=== PATIENT | male | born 1945 | race Caucasian/White ===

== ENCOUNTER 2017-03-27 18:10 | Emergency (ER) | payer OTHER, MEDICARE ==
[~2017-03-27] VITALS: Ht 177.8 cm; Wt 79.1 kg
[~2017-03-27 18:10] MED LIST: BACTRIM,SEPT1 TABLET PO; DILTIAZEM 24HR240 MG PO; GABAPENTIN100 MG PO; GLYBURIDE2.5 MG PO; HYDROCHLOROTHIA25 MG PO; HYDROCODON-ACE1 EAC7 PO; HYDROCODON-ACE1 EAC9 PO; K-DUR20 MEQ PO; LEFLUNOMIDE20 MG PO; LORAZEPAM1 MG PO; METFORMIN HCL850 MG PO; OMEPRAZOLE20 MG PO; PREDNISONE5 MG PO; TAMSULOSIN HCL0.4 MG PO; TIZANIDINE HCL4 M1 PO; TIZANIDINE HCL4 MG PO; WARFARIN SODIUM5 MG PO
[2017-03-27 21:03] LABS: HEMATOCRIT 37.2 % (38.0-50.0); MCH 31.2 PG (29.0-34.0); MCHC 32.8 G/DL (30.0-36.0); MCV 95.1 FL (86-99); MEAN PLAT.VOLUME 10.2 uM^3 (9.0-12.4); PLATELET COUNT 249 K/uL (156-360); RBC DIS.WIDTH-CV 13.5 % (11.8-14.6); RBC DIS.WIDTH-SD 47.3 % (39-53); RED BLOOD COUNT 3.91 M/uL (4.00-5.50); WHITE BLOOD COUNT 7.6 K/uL (4.1-10.2)
[2017-03-27 21:10] LABS: INTER. NORMALIZED RATIO 1.9; PROTHROMBIN TIME 21.6 SEC (10.2-12.9)
[2017-03-27 21:16] LABS: CHLORIDE 102 mEq/L (99-109); POTASSIUM 4.3 mEq/L (3.7-5.4); SODIUM 141 mEq/L (136-147)
[2017-03-27 21:18] LABS: GLUCOSE 229 mg/dL (70-99)
[2017-03-27 21:20] LABS: ANION GAP 13 MEQ/L (2-14)
[2017-03-27 21:22] LABS: GFR ESTIMATE (CALCULATED) > 59 mL/min/
[2017-03-27 21:23] LABS: UREA NITROGEN (BUN) 30 mg/dL (9-23)
[2017-03-27] MEDS ORDERED: COLACE100 MG PO (21:40)
[2017-03-27] MEDS ORDERED: OXAYDO5 MG PO (21:40)
[2017-03-27] MEDS ORDERED: OXYCODONE HCL10 MG PO (21:46)
[2017-03-27 22:14] VITALS: BP 133/87
== END 2017-03-27 22:18 | disposition home or self-care (01) ==
LOC: EME 18:10
PROVIDERS: Physician Assistant
DX: M54.31 Sciatica, right side (principal); E11.9 Type 2 diabetes mellitus without complications; I48.91 Unspecified atrial fibrillation; Z96.649 Presence of unspecified artificial hip joint; Z87.891 Personal history of nicotine dependence
CPT/HCPCS: 72100; 80048; 85027; 85610; 93005; 99281; 99284; J3010

== ENCOUNTER 2017-03-30 16:02 | Emergency (ER) | payer OTHER, MEDICARE ==
[~2017-03-30] VITALS: Ht 177.8 cm; Wt 78.2 kg
[~2017-03-30 16:02] MED LIST changes: +COLACE100 MG PO; +OXAYDO5 MG PO; +OXYCODONE HCL10 MG PO
[2017-03-30 18:02] VITALS: BP 152/88
== END 2017-03-30 18:04 | disposition home or self-care (01) ==
LOC: EME 16:02
DX: G89.29 Other chronic pain (principal); M54.5 Low back pain; Z87.442 Personal history of urinary calculi; Z96.643 Presence of artificial hip joint, bilateral; Z87.891 Personal history of nicotine dependence
CPT/HCPCS: 99281; 99283; J3010

== ENCOUNTER 2017-12-05 21:52 | Inpatient (IN) | payer OTHER, MEDICARE ==
[~2017-12-05] VITALS: Ht 180.3 cm; Wt 85.2 kg
[~2017-12-05 21:52] MED LIST changes: +COUMADIN5 MG PO; +DILTIAZEM 24HR180 MG PO; +DOCUSATE SODIU100 MG PO; +ELIQUIS5 MG PO; -GABAPENTIN100 MG PO; +GABAPENTIN300 MG PO; +KLOR-CON M2020 MEQ PO; +LOPRESSOR25 MG PO; +METHOTREXA250 MG/10 IM; +NAFCIL 2 G2 GM/100 M IV; +OXYCODONE HCL5 MG PO; +PREDNISONE1 MG PO; +TYLENOL EXTRA500 MG PO
[2017-12-05 22:32] LABS: HEMATOCRIT 31.7 % (38.0-50.0); HEMOGLOBIN 10.6 G/DL (12.5-16.6); MCH 30.6 PG (29.0-34.0); MCHC 33.4 G/DL (30.0-36.0); MCV 91.6 FL (86-99); PLATELET COUNT 259 K/uL (156-360); RBC DIS.WIDTH-CV 16.4 % (11.8-14.6); RBC DIS.WIDTH-SD 54.4 % (39-53); RED BLOOD COUNT 3.46 M/uL (4.00-5.50); WHITE BLOOD COUNT 8.1 K/uL (4.1-10.2)
[2017-12-05 22:40] LABS: CHLORIDE 102 mEq/L (99-109); POTASSIUM 4.1 mEq/L (3.7-5.4); SODIUM 137 mEq/L (136-147)
[2017-12-05 22:41] LABS: GLUCOSE 172 mg/dL (70-99)
[2017-12-05 22:45] LABS: CREATININE 1.2 mg/dL (0.6-1.3); GFR ESTIMATE (CALCULATED) > 59 mL/min/ (58.99-99999)
[2017-12-05 22:46] LABS: UREA NITROGEN (BUN) 37 mg/dL (9-23)
[2017-12-05 22:54] LABS: TROP-I INTERPRETATION NEGATIVE; TROPONIN-I 0.05 ng/mL (0.0-0.30)
[2017-12-06 00:58] LABS: ALBUMIN 4.1 g/dL (3.2-4.8)
[2017-12-06 01:01] LABS: TOTAL PROTEIN 6.6 g/dL (6.4-8.3)
[2017-12-06 01:03] LABS: TOTAL BILIRUBIN 0.6 mg/dL (0.0-1.0)
[2017-12-06 01:04] LABS: ALKALINE PHOSPHATASE 82 IU/L (3-129)
[2017-12-06 01:07] LABS: ALT (GPT) 17 IU/L (3-49); AST (GOT) 19 IU/L (2-34); DIRECT BILIRUBIN 0.2 mg/dL (0.0-0.3)
[2017-12-06] MEDS ORDERED: PERCOCET 5/31 TABLET PO (01:41)
[2017-12-06] MEDS ORDERED: DILTIAZEM 24HR240 MG PO (01:41)
[2017-12-06] MEDS ORDERED: HYDROCHLOROTHIA25 MG PO (01:44)
[2017-12-06] MEDS ORDERED: COUMADIN5 MG PO (01:44)
[2017-12-06] MEDS ORDERED: CALCIUM 600 +1 EAC2 PO (01:44)
[2017-12-06] MEDS ORDERED: COUMADIN3 MG PO (01:44)
[2017-12-06] MEDS ORDERED: KENALOG,ARISTOC15 G2 TP (01:45)
[2017-12-06 01:49] LABS: PTT 27.8 SEC (25-37)
[2017-12-06 01:50] LABS: INTER. NORMALIZED RATIO 1.1
[2017-12-06 02:01] LABS: TROP-I INTERPRETATION NEGATIVE; TROPONIN-I 0.09 ng/mL (0.0-0.30)
[2017-12-06 03:30] VITALS: BP 157/100
[2017-12-06 05:37] LABS: INTER. NORMALIZED RATIO 1.2
[2017-12-06 05:45] LABS: TROP-I INTERPRETATION NEGATIVE; TROPONIN-I 0.14 ng/mL (0.0-0.30)
[2017-12-06 05:54] LABS: HDL CHOLESTEROL 34 MG/DL (Desirable>=40); LDL CHOLESTEROL 155 mg/dL (Desirable<100); NON-HDL CHOLESTEROL 212 mg/dL (Desirable<160); TOTAL CHOLESTEROL 246 mg/dL (Desirable<200); TRIGLYCERIDES 286 MG/DL (Normal: <150)
[2017-12-06 07:59] VITALS: BP 127/77
[2017-12-06 10:08] LABS: HEMOGLOBIN A1c (GLYCOHEMOGLOB) 7.7 % (Below 5.7)
[2017-12-06 11:32] VITALS: BP 117/71
[2017-12-06 12:59] LABS: TROP-I INTERPRETATION NEGATIVE; TROPONIN-I 0.26 ng/mL (0.0-0.30)
[2017-12-06 21:40] VITALS: BP 119/73
[2017-12-06 23:30] VITALS: BP 99/66
[2017-12-07 04:30] VITALS: BP 109/66
[2017-12-07 05:34] LABS: INTER. NORMALIZED RATIO 1.3
[2017-12-07 08:34] VITALS: BP 118/73
[2017-12-07 09:07] LABS: HEMATOCRIT 31.2 % (38.0-50.0); HEMOGLOBIN 10.2 G/DL (12.5-16.6); MCH 30.1 PG (29.0-34.0); MCHC 32.7 G/DL (30.0-36.0); PLATELET COUNT 253 K/uL (156-360); RBC DIS.WIDTH-CV 16.5 % (11.8-14.6); RBC DIS.WIDTH-SD 54.8 % (39-53); RED BLOOD COUNT 3.39 M/uL (4.00-5.50); WHITE BLOOD COUNT 8.9 K/uL (4.1-10.2)
[2017-12-07 09:59] LABS: CHLORIDE 105 MEQ/L (99-109); GFR ESTIMATE (CALCULATED) > 59 mL/min/ (58.99-99999); GLUCOSE 131 mg/dL (70-99); SODIUM 139 MEQ/L (136-147); UREA NITROGEN (BUN) 24 mg/dL (9-23)
[2017-12-07 12:00] VITALS: BP 128/82
[2017-12-07 15:49] VITALS: BP 129/68
[2017-12-07 18:31] LABS: INTER. NORMALIZED RATIO 1.3
[2017-12-07 18:35] LABS: PTT 53.6 SEC (25-37)
[2017-12-07 19:30] VITALS: BP 127/70
[2017-12-07 23:00] VITALS: BP 120/81
[2017-12-08 04:00] VITALS: BP 126/78
[2017-12-08 06:21] LABS: INTER. NORMALIZED RATIO 1.2
[2017-12-08 06:24] LABS: PTT 60.4 SEC (25-37)
[2017-12-08 08:10] VITALS: BP 100/77
[2017-12-08 12:53] LABS: HEMOGLOBIN 9.5 G/DL (12.5-16.6); MCH 30.4 PG (29.0-34.0); MCHC 32.8 G/DL (30.0-36.0); MCV 92.7 FL (86-99); PLATELET COUNT 217 K/uL (156-360); RBC DIS.WIDTH-CV 16.5 % (11.8-14.6); RED BLOOD COUNT 3.13 M/uL (4.00-5.50); WHITE BLOOD COUNT 9.6 K/uL (4.1-10.2)
[2017-12-08 13:48] VITALS: BP 122/57
[2017-12-08 16:41] VITALS: BP 117/69
[2017-12-08 19:29] VITALS: BP 131/66
[2017-12-08 23:13] VITALS: BP 143/73
[2017-12-09 03:47] VITALS: BP 120/66
[2017-12-09 05:02] LABS: HEMATOCRIT 27.1 % (38.0-50.0); HEMOGLOBIN 8.6 G/DL (12.5-16.6); MCH 29.9 PG (29.0-34.0); MCHC 31.7 G/DL (30.0-36.0); MCV 94.1 FL (86-99); PLATELET COUNT 194 K/uL (156-360); RBC DIS.WIDTH-CV 16.5 % (11.8-14.6); RBC DIS.WIDTH-SD 55.4 % (39-53); RED BLOOD COUNT 2.88 M/uL (4.00-5.50); WHITE BLOOD COUNT 8.5 K/uL (4.1-10.2)
[2017-12-09 05:08] LABS: INTER. NORMALIZED RATIO 1.2
[2017-12-09 05:57] LABS: CHLORIDE 108 MEQ/L (99-109); GFR ESTIMATE (CALCULATED) > 59 mL/min/ (58.99-99999); GLUCOSE 146 mg/dL (70-99); POTASSIUM 3.8 MEQ/L (3.7-5.4); SODIUM 140 MEQ/L (136-147); UREA NITROGEN (BUN) 28 mg/dL (9-23)
[2017-12-09 07:19] VITALS: BP 128/63
[2017-12-09 19:32] VITALS: BP 138/90
[2017-12-10 00:30] VITALS: BP 130/74
[2017-12-10 04:15] VITALS: BP 135/79
[2017-12-10 07:19] LABS: INTER. NORMALIZED RATIO 1.1
[2017-12-10 07:30] LABS: PTT 26.8 SEC (25-37)
[2017-12-10 08:25] VITALS: BP 133/72
[2017-12-10] MEDS ORDERED: CLOPIDOGREL75 MG PO (10:57)
[2017-12-10] MEDS ORDERED: PRAVASTATIN SOD40 MG PO (10:58)
[2017-12-10] MEDS ORDERED: ASPIRIN81 M2 PO (10:58)
[2017-12-10] MEDS ORDERED: CARVEDILOL3.125 MG PO (10:58)
[2017-12-10] MEDS ORDERED: LISINOPRIL2.5 MG PO (10:58)
[2017-12-10] MEDS ORDERED: METFORMIN HCL850 MG PO (11:00)
[2017-12-10] MEDS ORDERED: LORAZEPAM0.5 MG PO (11:01)
== END 2017-12-10 12:11 | disposition home or self-care (01) | DRG 247 ==
LOC: EME 21:52 → EDOF 12-06 00:46 → 4SOUTH 12-06 00:46 → ENRESERV 12-06 00:47 → 4SOUTH 12-06 03:13 → ENRESERV 12-06 20:11 → 4EAST 12-06 21:40
PROVIDERS: Emergency Medicine; Hospitalist; Internal Medicine Cardiovascular Disease; Physician Assistant Medical
DX: I25.110 Atherosclerotic heart disease of native coronary artery with unstable angina pectoris (principal); I24.9 Acute ischemic heart disease, unspecified; I48.0 Paroxysmal atrial fibrillation; I10 Essential (primary) hypertension; E11.9 Type 2 diabetes mellitus without complications; E78.5 Hyperlipidemia, unspecified; I48.2 Chronic atrial fibrillation; I71.2 Thoracic aortic aneurysm, without rupture; K21.9 Gastro-esophageal reflux disease without esophagitis; M06.9 Rheumatoid arthritis, unspecified; M35.3 Polymyalgia rheumatica; Z87.891 Personal history of nicotine dependence; Z96.643 Presence of artificial hip joint, bilateral; Z98.1 Arthrodesis status; Z79.01 Long term (current) use of anticoagulants; Z79.82 Long term (current) use of aspirin; Z79.84 Long term (current) use of oral hypoglycemic drugs; L40.9 Psoriasis, unspecified; M19.90 Unspecified osteoarthritis, unspecified site; F41.1 Generalized anxiety disorder; G89.29 Other chronic pain; M54.5 Low back pain; K59.09 Other constipation
CPT/HCPCS: 71046; 71275; 80048; 80061; 80076; 82948; 83036; 84484; 85027; 85347; 85379; 85610; 85730; 93005; 99281; 99285; C1725; C1769; C1874; C1887; C1894; G0378; J0153; J0583; J1644; J1650; J1815; J2250; J3010; J7030; J7512